=== PATIENT | male | born 1965 | race Caucasian/White ===

== ENCOUNTER → 2020-06-15 09:37 | Outpatient (CLI) | payer OTHER, SELFPAY ==
--- NOTE | ~2020-06-15 | XR_ITS ---
EXAMINATION: XR lumbar spine 2-3V EXAM DATE: 06/15/2020 10:49 INDICATION: M54.41 - Lumbago with sciatica, right side . TECHNIQUE: Lumber spine frontal, lateral, lateral L5-S1 projections for interpretation. Comparison is made to prior examination from 03/26/2013. FINDINGS: Mild diffuse lumbar disc disease. There is moderate lumbar facet arthropathy. Sacrum, sacr oiliac joints, sacral arcuate lines are intact. Paraspinal soft tissue is unremarkable. The vertebral bodies are aligned in the AP dimension. IMPRESSION: 1. Mild lumbar disc disease, moderate arthropathy. Reviewed, dictated and finalized at location A.
--- NOTE | ~2020-06-15 | XR_ITS ---
XR_CERV2-3V_CR 06/15/2020 10:49 Indication: Neck pain Procedure: 5 views cervical spine Comparison: No prior studies for comparison. Findings: There is straightening of cervical lordosis. There is disc narrowing at C4-5, C5-6 and C6-7 . No prevertebral soft tissue swelling. There is moderate multilevel uncinate and facet degenerative changes. No fracture or traumatic malalignment. No prevertebral soft tissue swelling. Odontoid proces s within normal limits. Impression: 1: Moderate cervical spondylosis. Reviewed, dictated and finalized at location B. Impression: 1: Moderate cervical spondylosis.
--- NOTE | ~2020-06-15 | XR_ITS ---
EXAMINATION: XR thoracic spine 3V EXAM DATE: 06/15/2020 10:49 INDICATION: M54.6 - Pain in thoracic spine. TECHNIQUE: Frontal and lateral projections of the thoracic spine as well as lateral swimmers projecti on of the upper thoracic spine for interpretation. Comparison is made to prior examination from 010. FINDINGS: Moderate mid thoracic disc disease, mild to moderate at the lower thoracic levels. The vert ebral body heights appear maintained. There are no bony erosions identified. The vertebral bodies are aligned in the AP dimension. There are no acute fractures identified. IMPRESSION: Mild mid thoracic disc disease. No acute findings. Reviewed, dictated and finalized at location A.
== END ==
PROVIDERS: PCP Family Medicine; Visit Provider Physician Assistant Medical
DX: G89.29 Other chronic pain (principal); M54.2 Cervicalgia; M54.6 Pain in thoracic spine; M54.41 Lumbago with sciatica, right side; M47.816 Spondylosis without myelopathy or radiculopathy, lumbar region; M51.84 Other intervertebral disc disorders, thoracic region; M47.812 Spondylosis without myelopathy or radiculopathy, cervical region
CPT/HCPCS: 72040; 72072; 72100

== ENCOUNTER 2021-11-25 07:58 | Outpatient (CLI) | payer OTHER, SELFPAY ==
--- NOTE | 2021-11-25 | ECG_ITS ---
Measurements Intervals [place] Rate: 74 P: 20 NH: 177 QRS: 13 QRSD: 98 T: 0 QT: 357 QTc: 398 Interpretive Statements SINUS RHYTHM NORMAL ECG NO PREVIOUS ECG AVAILABLE FOR COMPARISON Electronically Signed On 11-26-2021 10:06:31 CDT by Wilfrido Orellana M.D.
== END 2021-11-25 07:59 | disposition home or self-care (01) ==
PROVIDERS: PCP Family Medicine
DX: M72.2 Plantar fascial fibromatosis (principal)
CPT/HCPCS: 93005

== ENCOUNTER 2024-12-15 09:28 | Outpatient (CLI) | payer OTHER, SELFPAY ==
--- NOTE | ~2024-12-15 | MR_ITS ---
EXAMINATION: MR lumbar spine wo con DATE: 12/15/2024 09:53 INDICATION: Other intervertebral disc degeneration. Low back pain. TECHNIQUE: Magnetic resonance imaging (MRI) of the lumbar spine was performed without intravenous contrast. Sequences included sagittal T2-weighted FSE, sagittal T2-weighted FS FSE, sagittal T1-weighted FSE, and axial T2-weighted FSE. COMPARISON: Lumbar spine MRI 03/28/13 FINDINGS: There is 6 degrees dextrocurvature of thoracic lumbar spine. There is 2 mm anterolisthesis of L3 on L4. There is mild chronic anterior wedging of T12 vertebral body. There is moderately decreased disc height at T11-T12 and L1-L2, mildly decreased disc height at L3-L4, and severely decreased disc height at L4- L5 and L5-S1. The distal spinal cord signal intensity is normal. The conus medullaris is at L1. The following disc levels are specifically discussed: L1-L2: The disc is bulging. There is severe bilateral facet joint osteoarthritis. There is mild bilateral neural foraminal stenosis. There is mild central canal stenosis. L2-L3: The disc is bulging. There is moderate bilateral facet joint osteoarthritis. There is mild bilateral neural foraminal stenosis. There is mild central canal stenosis. L3-L4: The disc is bulging. There is severe bilateral facet joint osteoarthritis. There is mild bilateral neural foraminal stenosis. There is moderate central canal stenosis. L4-L5: The disc is bulging and has an annular fissure. There is severe bilateral facet joint osteoarthritis. There is mild right and moderate left neural foraminal stenosis. There is mild central canal stenosis. L5-S1: The disc is bulging and has an annular fissure. There is mild bilateral facet joint osteoarthritis. There is moderate bilateral neural foraminal stenosis. There is mild central canal stenosis. IMPRESSION: 1. Severe lumbar spondylosis, worsened from 03/28/2013. Reviewed, dictated and finalized at location E.
== END 2024-12-15 09:29 | disposition home or self-care (01) ==
LOC: MICIMG 09:28
PROVIDERS: PCP Family Medicine
DX: M47.816 Spondylosis without myelopathy or radiculopathy, lumbar region (principal); M51.362 Other intervertebral disc degeneration, lumbar region with discogenic back pain and lower extremity pain; M51.369 Other intervertebral disc degeneration, lumbar region without mention of lumbar back pain or lower extremity pain; M51.16 Intervertebral disc disorders with radiculopathy, lumbar region
CPT/HCPCS: 72148